=== PATIENT | male | born 1970 | race African-American/Black ===

== ENCOUNTER 2019-05-26 18:23 | Inpatient (IN) ==
[2019-05-26] MEDS ORDERED: FUROSEMIDE 40 MG/4 ML VIAL IV STA (19:17)
[2019-05-26] MEDS ORDERED: ONDANSETRON 4 MG/2 ML VIAL IV STA (19:17)
[2019-05-26] MEDS ORDERED: ALBUTEROL/IPRATROPIUM 3 ML NEB RESP TX STA (19:17)
[2019-05-26] MEDS ORDERED: METOPROLOL TARTRATE 5 MG/5 ML VIAL IV STA ×2 (19:17→19:56)
[2019-05-26 19:34] LABS: Basophils % 0.8 % (0.0-0.8); Eosinophils % 0.6 % (0.00-10.9); Hematocrit 45.5 VOL% (42.0-52.0); Hemoglobin 15.4 GM/DL (14.0-18.0); Immature Granulocytes % 0.4 %; Immature Granulocytes Absolute 0.02 #; Lymphocytes % 39.6 % (21.2-54.2); Mean Corpuscular HGB Conc 33.8 GM/DL (32-36); Mean Platelet Volume 11.2 FL (9.6-12.0); Monocytes % 12.9 % (1.7-12.7); Neutrophils % 45.7 % (38.7-73.9); Platelet Count 186 T/CUMM (130-400); Red Blood Count 5.11 MC/CUMM (3.8-5.5)
[2019-05-26 19:51] LABS: Albumin 3.2 G/DL (3.4-5.0); Bilirubin,Total 2.2 MG/DL (0.2-1.0); Calcium 8.7 MG/DL (8.5-10.1); Osmolality,Calculated 290.1 MOS/KG (273-304); Total Protein 6.5 G/DL (6.4-8.3)
[2019-05-26 19:52] LABS: INR 1.4; PT Patient Result 15.4 SECS (9.6-12.2)
[2019-05-26 19:54] LABS: Amylase 48 U/L (25-115)
[2019-05-26 19:57] LABS: Free T4 (Free Thyroxine) 1.32 NG/DL (0.76-1.46); Thyroid Stimulating Hormone 2.64 uIU/ml (0.358-3.74)
[2019-05-26 19:58] LABS: Troponin I 0.085 NG/ML (0.00-0.045)
[2019-05-26] MEDS ORDERED: methylPREDNISolone SOD SUC 125 MG/2 ML VIAL IV STA (20:07)
[2019-05-26] MEDS ORDERED: AZITHROMYCIN INJ 500 MG in SODIUM CHLORIDE 0.9% 250 ML IV STA (20:07)
[2019-05-26] MEDS ORDERED: cefTRIAXone 1,000 MG in SODIUM CHLORIDE 0.9% 100 ML IV STA (20:07)
[2019-05-26] MEDS ORDERED: ALBUTEROL NEB SOLN 5 MG/ML 20 ML/BOTTLE CONT NEB STA (20:07)
[2019-05-26] MEDS ORDERED: hydrALAZINE 20 MG/1 ML VIAL IV STA (20:21)
[2019-05-26 22:35] LABS: Apearance,Urine CLEAR (Clear); Bilirubin,Urine Negative (Negative); Blood, Urine Negative (Negative); Glucose,Urine (UA) Negative (Negative); Ketones,Urine Negative (Negative); Nitrite,Urine Negative (Negative); Protein,Urine Negative; RBC,Urine 1 /HPF (0-4); Urine Color Straw (Yellow); Urine Specific Gravity 1.011 (1.001-1.035); Urine Urobilinogen < 2.0 EU/DL (0.2-1.0); WBC,Urine <1 /HPF (0-6)
[2019-05-26] MEDS ORDERED: ONDANSETRON 4 MG/2 ML VIAL IV PRN (22:48)
[2019-05-26] MEDS ORDERED: MAGNESIUM SULF RIDER 4 GM in PREMIX 1 EACH IV PRN (22:48)
[2019-05-26] MEDS ORDERED: DEXTROSE 50% 25 GM/50 ML VIAL IV PRN ×2 (22:48)
[2019-05-26] MEDS ORDERED: ALBUTEROL 2.5 MG/3 ML NEB RESP TX PRN (22:48)
[2019-05-26] MEDS ORDERED: ACETAMINOPHEN 325 MG TABLET PO PRN (22:48)
[2019-05-26] MEDS ORDERED: guaiFENesin/CODEINE 5 ML LIQUID PO PRN (22:48)
[2019-05-26] MEDS ORDERED: MAGNESIUM SULF RIDER 2 GM in PREMIX 1 EACH IV PRN (22:48)
[2019-05-26] MEDS ORDERED: GLUCAGON 1 MG VIAL IM PRN ×2 (22:48)
[2019-05-26 22:50] LABS: Barbiturates Screen,Urine Negative (Negative); Benzodiazepines Screen,Urine Negative (Negative); Cannabinoid Screen,Urine Negative (Negative); Opiate Screen,Urine Negative (Negative); Phencyclidine Screen,Urine Negative (Negative)
[2019-05-27] MEDS: ENOXAPARIN 40 MG/0.4 ML SYRINGE SUBCUT SCH (01:31)
[2019-05-27] MEDS: hydrALAZINE 20 MG/1 ML VIAL IV PRN ×2 (01:34→05:25)
[2019-05-27] MEDS: ALBUTEROL/IPRATROPIUM 3 ML NEB RESP TX SCH ×4 (01:51→19:23)
[2019-05-27 07:13] LABS: Basophils % 0.3 % (0.0-0.8); Hematocrit 45.5 VOL% (42.0-52.0); Hemoglobin 15.9 GM/DL (14.0-18.0); Immature Granulocytes Absolute 0.04 #; Lymphocytes # 0.9 10*3/uL (1.4-4.0); Lymphocytes % 22.2 % (21.2-54.2); Mean Corpuscular HGB Conc 34.9 GM/DL (32-36); Mean Corpuscular Volume 86.5 FL (87-102); Mean Platelet Volume 11.8 FL (9.6-12.0); Monocytes % 1.8 % (1.7-12.7); Neutrophils % 74.7 % (38.7-73.9); Platelet Count 186 T/CUMM (130-400); Red Blood Count 5.26 MC/CUMM (3.8-5.5); Red Cell Distribution Width 19.2 % (9.3-17.3); White Blood Count 3.8 T/CUMM (4-12)
[2019-05-27] MEDS: methylPREDNISolone SOD SUC 125 MG/2 ML VIAL IV SCH ×3 (07:15→18:09)
[2019-05-27 07:35] LABS: Albumin 3.2 G/DL (3.4-5.0); Bilirubin,Total 1.8 MG/DL (0.2-1.0); Calcium 8.9 MG/DL (8.5-10.1); Osmolality,Calculated 289.1 MOS/KG (273-304); Total Protein 6.8 G/DL (6.4-8.3)
[2019-05-27] MEDS ORDERED: hydroCHLOROthiazide 25 MG TABLET PO SCH (09:00)
[2019-05-27] MEDS: INSULIN REGULAR 100 UNIT/ML SUBCUT SCH ×4 (09:04→22:05)
[2019-05-27] MEDS: POTASSIUM CHLORIDE 20 MEQ TABLET PO SCH ×2 (09:06→14:23)
[2019-05-27] MEDS: PANTOPRAZOLE 40 MG TABLET PO SCH (09:06)
[2019-05-27] MEDS: ASPIRIN CHEW 81 MG TABLET PO SCH (09:06)
[2019-05-27] MEDS: SPIRONOLACTONE 50 MG TABLET PO SCH ×3 (09:06→22:05)
[2019-05-27] MEDS: ALBUMIN 25% 25 GM in PREMIX 1 EACH IV SCH ×2 (09:09→17:14)
[2019-05-27] MEDS ORDERED: LOSARTAN 25 MG TABLET PO SCH ×2 (10:00→21:00)
[2019-05-27] MEDS: FUROSEMIDE 40 MG/4 ML VIAL IV SCH ×2 (10:37→17:11)
[2019-05-27] MEDS: carvediloL 3.125 MG TABLET PO SCH ×2 (10:39→22:05)
[2019-05-27] MEDS ORDERED: POTASSIUM CHLORIDE 20 MEQ TABLET PO SCH (14:30)
[2019-05-27] MEDS: amLODIPine 2.5 MG TABLET PO SCH (17:10)
[2019-05-27] MEDS ORDERED: LOSARTAN 50 MG TABLET PO SCH (21:00)
[2019-05-27] MEDS ORDERED: cefTRIAXone 1,000 MG in SYRINGE 1 EACH IV SCH (21:00)
[2019-05-27] MEDS ORDERED: AZITHROMYCIN INJ 500 MG in SODIUM CHLORIDE 0.9% 250 ML IV SCH (21:00)
[2019-05-27] MEDS: LOSARTAN 25 MG TABLET PO SCH (22:05)
[2019-05-28] MEDS: ALBUTEROL/IPRATROPIUM 3 ML NEB RESP TX SCH ×4 (00:18→19:23)
[2019-05-28] MEDS: ENOXAPARIN 40 MG/0.4 ML SYRINGE SUBCUT SCH ×2 (00:59→22:41)
[2019-05-28] MEDS: ALBUMIN 25% 25 GM in PREMIX 1 EACH IV SCH ×2 (00:59→09:59)
[2019-05-28] MEDS: methylPREDNISolone SOD SUC 125 MG/2 ML VIAL IV SCH ×2 (00:59→07:14)
[2019-05-28 05:12] LABS: Hematocrit 40.9 VOL% (42.0-52.0); Hemoglobin 13.9 GM/DL (14.0-18.0); Immature Granulocytes % 0.4 %; Immature Granulocytes Absolute 0.03 #; Lymphocytes # 0.8 10*3/uL (1.4-4.0); Lymphocytes % 10.8 % (21.2-54.2); Mean Corpuscular Volume 89.5 FL (87-102); Mean Platelet Volume 11.5 FL (9.6-12.0); Monocytes % 6.2 % (1.7-12.7); Neutrophils % 82.6 % (38.7-73.9); Platelet Count 168 T/CUMM (130-400); Red Blood Count 4.57 MC/CUMM (3.8-5.5); Red Cell Distribution Width 18.6 % (9.3-17.3); White Blood Count 7.3 T/CUMM (4-12)
[2019-05-28 05:37] LABS: Albumin 3.6 G/DL (3.4-5.0); Bilirubin,Total 1.7 MG/DL (0.2-1.0); Calcium 9.3 MG/DL (8.5-10.1); Osmolality,Calculated 290.3 MOS/KG (273-304); Total Protein 6.7 G/DL (6.4-8.3)
[2019-05-28] MEDS: INSULIN REGULAR 100 UNIT/ML SUBCUT SCH ×4 (09:50→21:27)
[2019-05-28] MEDS: ASPIRIN CHEW 81 MG TABLET PO SCH (09:58)
[2019-05-28] MEDS: PANTOPRAZOLE 40 MG TABLET PO SCH (09:58)
[2019-05-28] MEDS: methylPREDNISolone SOD SUC 40 MG/1 ML VIAL IV SCH ×2 (09:58→21:28)
[2019-05-28] MEDS: amLODIPine 2.5 MG TABLET PO SCH (09:58)
[2019-05-28] MEDS: carvediloL 3.125 MG TABLET PO SCH (09:58)
[2019-05-28] MEDS: sitaGLIPtin 25 MG TABLET PO SCH (10:01)
[2019-05-28] MEDS: carvediloL 6.25 MG TABLET PO SCH (21:27)
[2019-05-29] MEDS: ALBUTEROL/IPRATROPIUM 3 ML NEB RESP TX SCH ×5 (01:13→19:31)
[2019-05-29 06:21] LABS: Calcium 8.3 MG/DL (8.5-10.1); Osmolality,Calculated 284.8 MOS/KG (273-304)
[2019-05-29] MEDS: PANTOPRAZOLE 40 MG TABLET PO SCH (08:58)
[2019-05-29] MEDS: carvediloL 6.25 MG TABLET PO SCH (08:58)
[2019-05-29] MEDS: FUROSEMIDE 40 MG TABLET PO SCH ×2 (08:58→20:41)
[2019-05-29] MEDS: sitaGLIPtin 25 MG TABLET PO SCH (08:58)
[2019-05-29] MEDS: ASPIRIN CHEW 81 MG TABLET PO SCH (08:58)
[2019-05-29] MEDS ORDERED: FUROSEMIDE 40 MG TABLET PO SCH (09:00)
[2019-05-29] MEDS: LOSARTAN 25 MG TABLET PO SCH ×2 (09:01→20:42)
[2019-05-29] MEDS: INSULIN REGULAR 100 UNIT/ML SUBCUT SCH ×4 (09:02→20:42)
[2019-05-29] MEDS: methylPREDNISolone SOD SUC 40 MG/1 ML VIAL IV SCH (09:04)
[2019-05-29] MEDS ORDERED: FUROSEMIDE 20 MG/2 ML VIAL IV ONE (09:36)
[2019-05-29] MEDS: SPIRONOLACTONE 25 MG TABLET PO SCH ×2 (16:39→20:42)
[2019-05-29] MEDS: hydrALAZINE 20 MG/1 ML VIAL IV PRN (16:46)
[2019-05-29] MEDS: carvediloL 12.5 MG TABLET PO SCH (20:42)
[2019-05-29] MEDS ORDERED: AZITHROMYCIN 250 MG TABLET PO SCH (21:00)
[2019-05-29] MEDS: ENOXAPARIN 40 MG/0.4 ML SYRINGE SUBCUT SCH (22:21)
[2019-05-30] MEDS: ALBUTEROL/IPRATROPIUM 3 ML NEB RESP TX SCH ×4 (01:31→12:08)
[2019-05-30 05:25] LABS: Basophils % 0.1 % (0.0-0.8); Eosinophils % 0.2 % (0.00-10.9); Hematocrit 40.8 VOL% (42.0-52.0); Hemoglobin 14.2 GM/DL (14.0-18.0); Immature Granulocytes % 0.3 %; Immature Granulocytes Absolute 0.03 #; Lymphocytes # 2.3 10*3/uL (1.4-4.0); Lymphocytes % 22.1 % (21.2-54.2); Mean Corpuscular HGB Conc 34.8 GM/DL (32-36); Mean Corpuscular Volume 87.4 FL (87-102); Mean Platelet Volume 12.2 FL (9.6-12.0); Monocytes % 9.2 % (1.7-12.7); Neutrophils % 68.1 % (38.7-73.9); Platelet Count 170 T/CUMM (130-400); Red Blood Count 4.67 MC/CUMM (3.8-5.5); Red Cell Distribution Width 18.6 % (9.3-17.3); White Blood Count 10.5 T/CUMM (4-12)
[2019-05-30 05:30] LABS: Bilirubin,Total 1.2 MG/DL (0.2-1.0); Calcium 8.5 MG/DL (8.5-10.1); Osmolality,Calculated 288.3 MOS/KG (273-304); Total Protein 5.8 G/DL (6.4-8.3)
[2019-05-30] MEDS ORDERED: POTASSIUM CHLORIDE 20 MEQ TABLET PO ONE (06:33)
[2019-05-30] MEDS ORDERED: MAGNESIUM HYDROXIDE SUSP 30 ML UDCUP PO PRN (07:52)
[2019-05-30] MEDS: PANTOPRAZOLE 40 MG TABLET PO SCH (08:34)
[2019-05-30] MEDS: sitaGLIPtin 25 MG TABLET PO SCH (08:34)
[2019-05-30] MEDS: ASPIRIN CHEW 81 MG TABLET PO SCH (08:34)
[2019-05-30] MEDS: SPIRONOLACTONE 25 MG TABLET PO SCH ×2 (08:34→15:00)
[2019-05-30] MEDS: FUROSEMIDE 40 MG TABLET PO SCH (08:34)
[2019-05-30] MEDS: LOSARTAN 25 MG TABLET PO SCH (08:34)
[2019-05-30] MEDS: carvediloL 12.5 MG TABLET PO SCH (08:35)
[2019-05-30] MEDS: INSULIN REGULAR 100 UNIT/ML SUBCUT SCH ×2 (08:36→11:29)
[2019-05-30] MEDS ORDERED: POTASSIUM CHLORIDE 10 MEQ TABLET PO SCH (09:00)
[2019-05-30] MEDS ORDERED: DOCUSATE SODIUM 100 MG CAPSULE PO SCH (09:00)
[2019-05-30] MEDS ORDERED: POTASSIUM CHLORIDE 20 MEQ TABLET PO SCH (09:00)
[2019-05-30 13:05] VITALS: BP 119/98
== END 2019-05-30 16:20 | disposition home or self-care (01) | DRG 292 ==
LOC: N.ED 18:23 → N.EDINP 22:49 → SUATTDRO 22:49 → N.3E 23:23
PROVIDERS: ADMIT Internal Medicine; ATTEND Internal Medicine Infectious Disease

== ENCOUNTER 2019-12-28 15:05 | Observation (INO) ==
[2019-12-28] MEDS ORDERED: ONDANSETRON 4 MG/2 ML VIAL ONE (15:39)
[2019-12-28] MEDS ORDERED: DICYCLOMINE 20 MG/2 ML AMP IM ONE ×2 (16:14→18:47)
[2019-12-28] MEDS ORDERED: PANTOPRAZOLE 40 MG VIAL IV STA (16:14)
[2019-12-28] MEDS ORDERED: METOCLOPRAMIDE 10 MG/2 ML VIAL IV STA ×2 (16:14→18:18)
[2019-12-28] MEDS ORDERED: ONDANSETRON 4 MG/2 ML VIAL IV STA ×2 (16:14→18:19)
[2019-12-28] MEDS ORDERED: SODIUM CHLORIDE 0.9% 1,000 ML IV STA (16:14)
[2019-12-28] MEDS ORDERED: METOPROLOL TARTRATE 5 MG/5 ML VIAL IV ONE (16:21)
[2019-12-28 16:24] LABS: Basophils % 0.8 % (0.0-0.8); Eosinophils % 0.2 % (0.00-10.9); Hematocrit 43.3 VOL% (42.0-52.0); Hemoglobin 14.1 GM/DL (14.0-18.0); Immature Granulocytes % 0.4 %; Immature Granulocytes Absolute 0.02 #; Lymphocytes # 1.2 10*3/uL (1.4-4.0); Lymphocytes % 23.2 % (21.2-54.2); Mean Corpuscular HGB Conc 32.6 GM/DL (32-36); Mean Platelet Volume 10.7 FL (9.6-12.0); Monocytes % 8.2 % (1.7-12.7); Neutrophils % 67.2 % (38.7-73.9); Platelet Count 266 T/CUMM (130-400); Red Blood Count 4.81 MC/CUMM (3.8-5.5); Red Cell Distribution Width 14.3 % (9.3-17.3); White Blood Count 5.3 T/CUMM (4-12)
[2019-12-28] MEDS: METOPROLOL TARTRATE 5 MG/5 ML VIAL IV SCH ×3 (16:37→17:53)
[2019-12-28 16:40] LABS: Albumin 3.6 G/DL (3.4-5.0); Bilirubin,Total 2.8 MG/DL (0.2-1.0); Calcium 9.1 MG/DL (8.5-10.1); Ferritin 125.3 ng/ml (26-388); Total Protein 7.3 G/DL (6.4-8.3)
[2019-12-28 17:11] LABS: Apearance,Urine CLEAR (Clear); Bacteria,Urine Occasional /HPF (Few); Bilirubin,Urine Negative (Negative); Blood, Urine Small mg/dL (Negative); Glucose,Urine (UA) Negative (Negative); Hyaline Casts,Urine 19 /LPF (0-3); Ketones,Urine 5 mg/dL (Negative); Mucus,Urine Moderate /LPF (Occasional); Nitrite,Urine Negative (Negative); Protein,Urine >=500 MG/DL; RBC,Urine <1 /HPF (0-4); Squamous Epithelial Cell,Urine Occasional /HPF (0-10); Urine Color Amber (Yellow); Urine Specific Gravity 1.027 (1.001-1.035)
[2019-12-28 17:35] LABS: Troponin I 0.083 NG/ML (0.00-0.045)
[2019-12-28] MEDS ORDERED: ACETAMINOPHEN 325 MG TABLET PO PRN (19:40)
[2019-12-28] MEDS ORDERED: GLUCAGON 1 MG VIAL IM PRN ×2 (19:40)
[2019-12-28] MEDS ORDERED: ONDANSETRON 4 MG/2 ML VIAL IV PRN (19:40)
[2019-12-28] MEDS ORDERED: DEXTROSE 10% 250 ML BAG IV PRN (19:40)
[2019-12-28] MEDS ORDERED: PROMETHAZINE 25 MG/1 ML VIAL IM PRN (19:40)
[2019-12-28] MEDS ORDERED: DEXTROSE 50% 25 GM/50 ML VIAL IV PRN (19:40)
[2019-12-28] MEDS: INSULIN LISPRO 100 UNIT/ML SUBCUT SCH (23:06)
[2019-12-29] MEDS: SODIUM CHLOR 0.45% KCL 20 MEQ 20 MEQ/1,000 ML BAG IV SCH ×4 (00:49→15:33)
[2019-12-29 05:53] LABS: Calcium 9.1 MG/DL (8.5-10.1); Osmolality,Calculated 271.4 MOS/KG (273-304)
[2019-12-29 05:57] LABS: Basophils # 0.1 10*3/uL (0.0-0.2); Basophils % 0.7 % (0.0-0.8); Eosinophils % 0.3 % (0.00-10.9); Hematocrit 45.3 VOL% (42.0-52.0); Hemoglobin 14.7 GM/DL (14.0-18.0); Immature Granulocytes % 0.3 %; Immature Granulocytes Absolute 0.02 #; Lymphocytes # 2.6 10*3/uL (1.4-4.0); Mean Corpuscular HGB Conc 32.5 GM/DL (32-36); Mean Corpuscular Volume 90.8 FL (87-102); Mean Platelet Volume 11.1 FL (9.6-12.0); Monocytes % 10.6 % (1.7-12.7); Neutrophils % 52.1 % (38.7-73.9); Platelet Count 249 T/CUMM (130-400); Red Blood Count 4.99 MC/CUMM (3.8-5.5); Red Cell Distribution Width 14.6 % (9.3-17.3); White Blood Count 7.3 T/CUMM (4-12)
[2019-12-29] MEDS: INSULIN LISPRO 100 UNIT/ML SUBCUT SCH ×4 (08:32→21:03)
[2019-12-29] MEDS: hydrALAZINE 20 MG/1 ML VIAL IV PRN ×2 (09:23→17:22)
[2019-12-29] MEDS: PANTOPRAZOLE 40 MG VIAL IV SCH (09:24)
[2019-12-29] MEDS: HEPARIN 5,000 UNIT/1 ML VIAL SUBCUT SCH ×2 (17:19→23:26)
[2019-12-29] MEDS: SODIUM CHLORIDE 0.9% 1,000 ML IV SCH (17:19)
[2019-12-29] MEDS: carvediloL 12.5 MG TABLET PO SCH ×2 (17:19→20:54)
[2019-12-29] MEDS: POTASSIUM CHLORIDE RIDER 10 MEQ in PREMIX 1 EACH IV SCH ×3 (17:22→20:54)
[2019-12-29] MEDS ORDERED: POTASSIUM CHLORIDE RIDER 10 MEQ in PREMIX 1 EACH IV SCH (22:30)
[2019-12-30] MEDS: hydrALAZINE 20 MG/1 ML VIAL IV PRN (05:00)
[2019-12-30] MEDS: SODIUM CHLORIDE 0.9% 1,000 ML IV SCH ×2 (06:54→11:53)
[2019-12-30] MEDS: POTASSIUM CHLORIDE RIDER 10 MEQ in PREMIX 1 EACH IV SCH (07:29)
[2019-12-30] MEDS ORDERED: ASPIRIN CHEW 81 MG TABLET PO SCH (09:00)
[2019-12-30] MEDS: PANTOPRAZOLE 40 MG VIAL IV SCH (09:14)
[2019-12-30] MEDS: carvediloL 12.5 MG TABLET PO SCH (09:14)
[2019-12-30] MEDS: HEPARIN 5,000 UNIT/1 ML VIAL SUBCUT SCH (09:19)
[2019-12-30] MEDS: INSULIN LISPRO 100 UNIT/ML SUBCUT SCH ×2 (09:20→11:50)
[2019-12-30 12:13] VITALS: BP 120/86
== END 2019-12-30 13:15 | disposition home or self-care (01) ==
LOC: N.EDINP 15:05 → N.ED 15:05 → N.TELES 20:44
PROVIDERS: ADMIT Internal Medicine; ATTEND Internal Medicine

== ENCOUNTER 2020-09-12 14:06 | Observation (INO) ==
[2020-09-12] MEDS ORDERED: ONDANSETRON 4 MG/2 ML VIAL IV STA (14:26)
[2020-09-12 14:58] LABS: Bilirubin,Urine Negative (Negative); Blood, Urine Negative (Negative); Glucose,Urine (UA) >=500 mg/dL (Negative); Ketones,Urine 20 mg/dL (Negative); Nitrite,Urine Negative (Negative); Protein,Urine Negative; RBC,Urine 1 /HPF (0-4); Urine Appearance CLEAR (Clear); Urine Color Straw (Yellow); Urine Specific Gravity 1.027 (1.001-1.035); Urine Urobilinogen < 2.0 EU/DL (0.2-1.0); WBC,Urine <1 /HPF (0-6)
[2020-09-12 15:10] LABS: Basophils % 0.5 % (0.0-0.8); Eosinophils # 0.1 10*3/uL (0.0-0.87); Eosinophils % 0.7 % (0.00-10.9); Hematocrit 53.3 VOL% (42.0-52.0); Hemoglobin 18.4 GM/DL (14.0-18.0); Immature Granulocytes % 0.7 %; Immature Granulocytes Absolute 0.05 #; Lymphocytes # 1.9 10*3/uL (1.4-4.0); Lymphocytes % 24.9 % (21.2-54.2); Mean Corpuscular HGB Conc 34.5 GM/DL (32-36); Mean Corpuscular Volume 86.7 FL (87-102); Mean Platelet Volume 11.2 FL (9.6-12.0); Monocytes % 10.8 % (1.7-12.7); Neutrophils % 62.4 % (38.7-73.9); Platelet Count 265 T/CUMM (130-400); Red Blood Count 6.15 MC/CUMM (3.8-5.5); Red Cell Distribution Width 12.3 % (9.3-17.3); White Blood Count 7.6 T/CUMM (4-12)
[2020-09-12 15:39] LABS: Albumin 3.5 G/DL (3.4-5.0); Bilirubin,Total 1.1 MG/DL (0.2-1.0); Calcium 9.2 MG/DL (8.5-10.1); Osmolality,Calculated 296.2 MOS/KG (273-304); Total Protein 8.3 G/DL (6.4-8.3)
[2020-09-12] MEDS ORDERED: INSULIN LISPRO 100 UNIT/ML SUBCUT STA (15:48)
[2020-09-12] MEDS ORDERED: SODIUM CHLORIDE 0.9% 1,000 ML IV STA (15:50)
[2020-09-12] MEDS ORDERED: GLUCAGON 1 MG VIAL IM PRN (16:12)
[2020-09-12] MEDS ORDERED: ACETAMINOPHEN 325 MG TABLET PO PRN (16:12)
[2020-09-12] MEDS ORDERED: hydrALAZINE 20 MG/1 ML VIAL IV PRN (16:12)
[2020-09-12] MEDS ORDERED: ONDANSETRON 4 MG/2 ML VIAL IV PRN (16:12)
[2020-09-12] MEDS ORDERED: DEXTROSE 50% 25 GM/50 ML VIAL IV PRN (16:12)
[2020-09-12] MEDS ORDERED: SODIUM CHLORIDE 0.9% 1,000 ML IV SCH (16:30)
[2020-09-12 17:05] LABS: Risk Ratio 5.91; Thyroid Stimulating Hormone 0.855 uIU/ml (0.358-3.74); VLDL CHOLESTEROL 32.6 MG/DL
[2020-09-12] MEDS: INSULIN LISPRO 100 UNIT/ML SUBCUT SCH ×2 (18:28→23:10)
[2020-09-12] MEDS ORDERED: INSULIN GLARGINE 100 UNIT/ML SUBCUT SCH (21:00)
[2020-09-12] MEDS ORDERED: ENOXAPARIN 40 MG/0.4 ML SYRINGE SUBCUT SCH (21:00)
[2020-09-13 05:32] LABS: Basophils # 0.1 10*3/uL (0.0-0.2); Basophils % 0.5 % (0.0-0.8); Eosinophils # 0.2 10*3/uL (0.0-0.87); Eosinophils % 2.1 % (0.00-10.9); Hematocrit 47.4 VOL% (42.0-52.0); Hemoglobin 16.3 GM/DL (14.0-18.0); Immature Granulocytes % 0.7 %; Immature Granulocytes Absolute 0.07 #; Lymphocytes # 3.1 10*3/uL (1.4-4.0); Lymphocytes % 32.4 % (21.2-54.2); Mean Corpuscular HGB Conc 34.4 GM/DL (32-36); Mean Corpuscular Volume 86.7 FL (87-102); Mean Platelet Volume 10.9 FL (9.6-12.0); Monocytes % 11.6 % (1.7-12.7); Neutrophils % 52.7 % (38.7-73.9); Platelet Count 280 T/CUMM (130-400); Red Blood Count 5.47 MC/CUMM (3.8-5.5); Red Cell Distribution Width 12.1 % (9.3-17.3); White Blood Count 9.6 T/CUMM (4-12)
[2020-09-13 06:06] LABS: Calcium 8.9 MG/DL (8.5-10.1)
[2020-09-13] MEDS: INSULIN LISPRO 100 UNIT/ML SUBCUT SCH ×2 (08:49→13:01)
[2020-09-13] MEDS ORDERED: PANTOPRAZOLE 40 MG TABLET PO SCH (09:00)
[2020-09-13 11:58] VITALS: BP 139/100
[2020-09-13] MEDS ORDERED: carvediloL 12.5 MG TABLET PO SCH (12:30)
[2020-09-13] MEDS ORDERED: LOSARTAN 25 MG TABLET PO SCH (12:30)
[2020-09-13] MEDS ORDERED: ASPIRIN CHEW 81 MG TABLET PO SCH (12:30)
[2020-09-13] MEDS ORDERED: SPIRONOLACTONE 25 MG TABLET PO SCH (15:00)
== END 2020-09-13 14:45 | disposition home or self-care (01) ==
LOC: EDUNIT# → N.3E 14:06 → N.ED 14:06 → N.3E 17:25
PROVIDERS: ADMIT Internal Medicine; ATTEND Internal Medicine